=== PATIENT | male | born 1965 | race Caucasian/White ===

== ENCOUNTER 2021-07-20 18:38 | Inpatient (IN) | payer OTHER ==
[2021-07-20] MEDS ORDERED: MAGNESIUM CITRATE 300 ML BOTTLE PO PRN (22:08)
[2021-07-20] MEDS ORDERED: MENTHOL/PHENOL 1 EACH UD MM PRN (22:08)
[2021-07-20] MEDS ORDERED: MAG HYDROX/AL HYDROX/SIMETH 30 ML UNIT-DOSE CUP PO PRN (22:08)
[2021-07-20] MEDS ORDERED: ACETAMINOPHEN 325 MG TABLET (FP) PO PRN (22:08)
[2021-07-20] MEDS ORDERED: LOPERAMIDE HCL 2 MG CAPSULE PO PRN (22:08)
[2021-07-20] MEDS ORDERED: guaiFENesin 200 MG/10 ML 10 ML UNIT-DOSE CUPS PO PRN (22:08)
[2021-07-20] MEDS ORDERED: IBUPROFEN 400 MG TABLET (FP) PO PRN (22:08)
[2021-07-20] MEDS ORDERED: MAGNESIUM HYDROX 2400MG/30ML ORAL SUSPENSION 30 ML CUP PO PRN (22:08)
[2021-07-20] MEDS ORDERED: P-EPHED 60MG/TRIPROLIDI 2.5MG TABLET PO PRN (22:08)
[2021-07-20] MEDS ORDERED: hydrOXYzine PAMOATE 25 MG CAPSULE (FP) PO PRN (22:11)
[2021-07-20 22:38] VITALS: BMI 21.7
[2021-07-21] MEDS: MELATONIN 5 MG TABLETS PO SCH ×2 (01:19→21:48)
[2021-07-21] MEDS: GABAPENTIN 100 MG CAPSULE PO SCH ×4 (01:20→21:48)
[2021-07-21] MEDS ORDERED: TUBERCULIN PPD 5 TU/0.1ML VIAL ID ONE (06:33)
[2021-07-21] MEDS: PRENATAL VITAMINS W/ FOLIC ACID TABLET (FP) PO SCH (09:45)
[2021-07-21] MEDS: THIAMINE HCL 100 MG TABLET (FP) PO SCH (21:48)
[2021-07-22] MEDS: GABAPENTIN 100 MG CAPSULE PO SCH ×3 (06:07→21:32)
[2021-07-22] MEDS: PRENATAL VITAMINS W/ FOLIC ACID TABLET (FP) PO SCH (09:57)
[2021-07-22] MEDS: MELATONIN 5 MG TABLETS PO SCH (21:32)
[2021-07-22] MEDS: THIAMINE HCL 100 MG TABLET (FP) PO SCH (21:32)
[2021-07-23] MEDS: GABAPENTIN 100 MG CAPSULE PO SCH ×3 (06:25→22:05)
[2021-07-23] MEDS ORDERED: hydrOXYzine PAMOATE 25 MG CAPSULE (FP) PO PRN (11:50)
[2021-07-23] MEDS ORDERED: P-EPHED 60MG/TRIPROLIDI 2.5MG TABLET PO PRN (11:51)
[2021-07-23] MEDS ORDERED: LOPERAMIDE HCL 2 MG CAPSULE PO PRN (11:51)
[2021-07-23] MEDS ORDERED: MAGNESIUM CITRATE 300 ML BOTTLE PO PRN (11:51)
[2021-07-23] MEDS ORDERED: guaiFENesin 200 MG/10 ML 10 ML UNIT-DOSE CUPS PO PRN (11:51)
[2021-07-23] MEDS ORDERED: ACETAMINOPHEN 325 MG TABLET (FP) PO PRN (11:51)
[2021-07-23] MEDS ORDERED: MAG HYDROX/AL HYDROX/SIMETH 30 ML UNIT-DOSE CUP PO PRN (11:51)
[2021-07-23] MEDS ORDERED: NICOTINE 10 MG CARTRIDGE (INHALER) IH PRN (11:51)
[2021-07-23] MEDS ORDERED: MAGNESIUM HYDROX 2400MG/30ML ORAL SUSPENSION 30 ML CUP PO PRN (11:51)
[2021-07-23 20:37] LABS: URINE APPEARANCE CLEAR; URINE BILIRUBIN NEGATIVE (NEGATIVE); URINE COLOR YELLOW; URINE GLUCOSE (UA) NEGATIVE (NEGATIVE); URINE KETONE NEGATIVE (NEGATIVE); URINE LEUK ESTERASE NEGATIVE (NEGATIVE); URINE NITRITE NEGATIVE (NEGATIVE); URINE PROTEIN NEGATIVE (NEGATIVE); URINE UROBILINOGEN 0.2 mg/dL (0.2-1.0)
[2021-07-23] MEDS: THIAMINE HCL 100 MG TABLET (FP) PO SCH (22:05)
[2021-07-23] MEDS: MELATONIN 5 MG TABLETS PO SCH (22:05)
[2021-07-24] MEDS: GABAPENTIN 100 MG CAPSULE PO SCH ×3 (06:11→21:20)
[2021-07-24] MEDS: NICOTINE 7 MG/24 HOURS TOPICAL PATCH TD SCH (09:20)
[2021-07-24] MEDS: PRENATAL VITAMINS W/ FOLIC ACID TABLET (FP) PO SCH (09:20)
[2021-07-24 10:10] LABS: ALBUMIN 3.3 g/dl (3.4-5.0)
[2021-07-24 10:12] LABS: CALCIUM 9.3 mg/dL (8.5-10.1)
[2021-07-24 10:13] LABS: BLOOD UREA NITROGEN 12.4 mg/dL (7-18); CREATININE 1.1 mg/dL (0.55-1.3)
[2021-07-24 10:14] LABS: BILIRUBIN,TOTAL 0.2 mg/dL (0.2-1); TOT PROT 7.2 g/dl (6.4-8.2)
[2021-07-24 10:15] LABS: HEMATOCRIT 39.6 % (35.4-49); HEMOGLOBIN 12.7 GM/dL (11.7-16.9); MCH 31.7 pg (25.7-33.7); MCHC 32.1 g/dl (32.0-35.9); MEAN CELL VOLUME 98.7 fl (80-96); PLATELET COUNT 206 10^3/uL (134-434); RBC 4.01 M/mm3 (4.00-5.60); RDW 14.5 % (11.9-15.9); WHITE BLOOD COUNT 7.1 K/mm3 (4.0-10.0)
[2021-07-24] MEDS: hydrOXYzine PAMOATE 25 MG CAPSULE (FP) PO PRN (21:21)
[2021-07-24] MEDS: MELATONIN 5 MG TABLETS PO SCH (21:21)
[2021-07-24] MEDS: THIAMINE HCL 100 MG TABLET (FP) PO SCH (21:21)
[2021-07-25] MEDS: GABAPENTIN 100 MG CAPSULE PO SCH (06:56)
[2021-07-25] MEDS: NICOTINE 7 MG/24 HOURS TOPICAL PATCH TD SCH (09:28)
[2021-07-25] MEDS: PRENATAL VITAMINS W/ FOLIC ACID TABLET (FP) PO SCH (09:28)
[2021-07-25] MEDS ORDERED: GABAPENTIN 400 MG CAPSULE ONE ×2 (14:20→19:02)
[2021-07-25] MEDS ORDERED: GABAPENTIN 100 MG CAPSULE ONE ×2 (14:20→19:01)
[2021-07-25] MEDS: GABAPENTIN 400 MG, GABAPENTIN 100 MG PO SCH ×2 (14:38→21:31)
[2021-07-25] MEDS: MELATONIN 5 MG TABLETS PO SCH (21:30)
[2021-07-25] MEDS: THIAMINE HCL 100 MG TABLET (FP) PO SCH (21:30)
[2021-07-26] MEDS ORDERED: GABAPENTIN 400 MG CAPSULE ONE ×2 (03:50→13:18)
[2021-07-26] MEDS ORDERED: GABAPENTIN 100 MG CAPSULE ONE ×2 (03:50→13:18)
[2021-07-26] MEDS: GABAPENTIN 400 MG, GABAPENTIN 100 MG PO SCH ×3 (07:24→21:41)
[2021-07-26] MEDS: NICOTINE 7 MG/24 HOURS TOPICAL PATCH TD SCH (09:38)
[2021-07-26] MEDS: PRENATAL VITAMINS W/ FOLIC ACID TABLET (FP) PO SCH (09:38)
[2021-07-26 10:42] LABS: BASO % 1.3 % (0-2.0); EOS % 11.6 % (0-4.5); HEMATOCRIT 39.4 % (35.4-49); HEMOGLOBIN 13.1 GM/dL (11.7-16.9); LYMPH % 28.9 % (8-40); MCH 32.4 pg (25.7-33.7); MCHC 33.3 g/dl (32.0-35.9); MEAN CELL VOLUME 97.3 fl (80-96); MEAN PLT VOLUME 8.4 fl (7.5-11.1); MONO % 11.6 % (3.8-10.2); NEUT % 46.6 % (42.8-82.8); PLATELET COUNT 225 10^3/uL (134-434); RBC 4.05 M/mm3 (4.00-5.60); RDW 14.4 % (11.9-15.9)
[2021-07-26 11:29] LABS: CALCIUM 9.2 mg/dL (8.5-10.1)
[2021-07-26 11:30] LABS: ALBUMIN 3.4 g/dl (3.4-5.0); BLOOD UREA NITROGEN 14.1 mg/dL (7-18)
[2021-07-26 11:33] LABS: CREATININE 1.1 mg/dL (0.55-1.3)
[2021-07-26 11:34] LABS: BILIRUBIN,TOTAL 0.4 mg/dL (0.2-1); TOT PROT 7.4 g/dl (6.4-8.2)
[2021-07-26] MEDS: THIAMINE HCL 100 MG TABLET (FP) PO SCH (21:42)
[2021-07-26] MEDS: MELATONIN 5 MG TABLETS PO SCH (21:42)
[2021-07-27] MEDS ORDERED: GABAPENTIN 400 MG CAPSULE ONE ×2 (03:04→19:41)
[2021-07-27] MEDS ORDERED: GABAPENTIN 100 MG CAPSULE ONE ×2 (03:04→19:40)
[2021-07-27] MEDS: GABAPENTIN 400 MG, GABAPENTIN 100 MG PO SCH ×3 (06:06→21:27)
[2021-07-27] MEDS: NICOTINE 7 MG/24 HOURS TOPICAL PATCH TD SCH (09:36)
[2021-07-27] MEDS: PRENATAL VITAMINS W/ FOLIC ACID TABLET (FP) PO SCH (09:36)
[2021-07-27] MEDS: THIAMINE HCL 100 MG TABLET (FP) PO SCH (21:27)
[2021-07-27] MEDS: hydrOXYzine PAMOATE 25 MG CAPSULE (FP) PO PRN (21:27)
[2021-07-27] MEDS: MELATONIN 5 MG TABLETS PO SCH (21:27)
[2021-07-28] MEDS: GABAPENTIN 400 MG, GABAPENTIN 100 MG PO SCH ×3 (06:12→21:12)
[2021-07-28] MEDS: PRENATAL VITAMINS W/ FOLIC ACID TABLET (FP) PO SCH (09:48)
[2021-07-28] MEDS: NICOTINE 7 MG/24 HOURS TOPICAL PATCH TD SCH (09:48)
[2021-07-28] MEDS ORDERED: GABAPENTIN 400 MG CAPSULE ONE (14:11)
[2021-07-28] MEDS ORDERED: GABAPENTIN 100 MG CAPSULE ONE (14:11)
[2021-07-28] MEDS: MELATONIN 5 MG TABLETS PO SCH (21:11)
[2021-07-28] MEDS: THIAMINE HCL 100 MG TABLET (FP) PO SCH (21:12)
[2021-07-29] MEDS ORDERED: GABAPENTIN 100 MG CAPSULE ONE ×2 (03:42→13:49)
[2021-07-29] MEDS ORDERED: GABAPENTIN 400 MG CAPSULE ONE ×2 (03:42→13:49)
[2021-07-29] MEDS: GABAPENTIN 400 MG, GABAPENTIN 100 MG PO SCH ×3 (06:11→21:11)
[2021-07-29] MEDS: NICOTINE 7 MG/24 HOURS TOPICAL PATCH TD SCH (09:49)
[2021-07-29] MEDS: PRENATAL VITAMINS W/ FOLIC ACID TABLET (FP) PO SCH (09:49)
[2021-07-29] MEDS: THIAMINE HCL 100 MG TABLET (FP) PO SCH (21:11)
[2021-07-29] MEDS: MELATONIN 5 MG TABLETS PO SCH (21:11)
[2021-07-30] MEDS ORDERED: GABAPENTIN 100 MG CAPSULE ONE ×3 (03:24→19:30)
[2021-07-30] MEDS ORDERED: GABAPENTIN 400 MG CAPSULE ONE ×3 (03:24→19:30)
[2021-07-30] MEDS: GABAPENTIN 400 MG, GABAPENTIN 100 MG PO SCH ×3 (06:18→21:18)
[2021-07-30] MEDS: NICOTINE 7 MG/24 HOURS TOPICAL PATCH TD SCH (09:53)
[2021-07-30] MEDS: PRENATAL VITAMINS W/ FOLIC ACID TABLET (FP) PO SCH (09:53)
[2021-07-30] MEDS: THIAMINE HCL 100 MG TABLET (FP) PO SCH (21:18)
[2021-07-30] MEDS: MELATONIN 5 MG TABLETS PO SCH (21:18)
[2021-07-31] MEDS ORDERED: GABAPENTIN 400 MG CAPSULE ONE ×2 (02:59→14:33)
[2021-07-31] MEDS ORDERED: GABAPENTIN 100 MG CAPSULE ONE ×2 (02:59→14:33)
[2021-07-31] MEDS: GABAPENTIN 400 MG, GABAPENTIN 100 MG PO SCH ×3 (06:05→21:26)
[2021-07-31] MEDS: PRENATAL VITAMINS W/ FOLIC ACID TABLET (FP) PO SCH (09:50)
[2021-07-31] MEDS: NICOTINE 7 MG/24 HOURS TOPICAL PATCH TD SCH (09:51)
[2021-07-31] MEDS: MELATONIN 5 MG TABLETS PO SCH (21:26)
[2021-07-31] MEDS: THIAMINE HCL 100 MG TABLET (FP) PO SCH (21:26)
[2021-08-01] MEDS ORDERED: GABAPENTIN 400 MG CAPSULE ONE ×3 (03:13→19:16)
[2021-08-01] MEDS ORDERED: GABAPENTIN 100 MG CAPSULE ONE ×3 (03:13→19:16)
[2021-08-01] MEDS: GABAPENTIN 400 MG, GABAPENTIN 100 MG PO SCH ×3 (06:17→21:17)
[2021-08-01] MEDS: PRENATAL VITAMINS W/ FOLIC ACID TABLET (FP) PO SCH (09:52)
[2021-08-01] MEDS: NICOTINE 7 MG/24 HOURS TOPICAL PATCH TD SCH (09:52)
[2021-08-01] MEDS: THIAMINE HCL 100 MG TABLET (FP) PO SCH (21:17)
[2021-08-01] MEDS: MELATONIN 5 MG TABLETS PO SCH (21:17)
[2021-08-01] MEDS: hydrOXYzine PAMOATE 25 MG CAPSULE (FP) PO PRN (21:17)
[2021-08-02] MEDS ORDERED: GABAPENTIN 100 MG CAPSULE ONE ×3 (05:03→19:45)
[2021-08-02] MEDS ORDERED: GABAPENTIN 400 MG CAPSULE ONE ×3 (05:03→19:45)
[2021-08-02] MEDS: GABAPENTIN 400 MG, GABAPENTIN 100 MG PO SCH ×3 (06:12→21:19)
[2021-08-02] MEDS: NICOTINE 7 MG/24 HOURS TOPICAL PATCH TD SCH (09:53)
[2021-08-02] MEDS: PRENATAL VITAMINS W/ FOLIC ACID TABLET (FP) PO SCH (09:53)
[2021-08-02] MEDS: IBUPROFEN 400 MG TABLET (FP) PO PRN (19:00)
[2021-08-02] MEDS: THIAMINE HCL 100 MG TABLET (FP) PO SCH (21:19)
[2021-08-02] MEDS: MELATONIN 5 MG TABLETS PO SCH (21:19)
[2021-08-03] MEDS ORDERED: GABAPENTIN 100 MG CAPSULE ONE ×3 (03:04→20:10)
[2021-08-03] MEDS ORDERED: GABAPENTIN 400 MG CAPSULE ONE ×3 (03:04→20:10)
[2021-08-03] MEDS: GABAPENTIN 400 MG, GABAPENTIN 100 MG PO SCH ×3 (06:31→21:07)
[2021-08-03] MEDS: PRENATAL VITAMINS W/ FOLIC ACID TABLET (FP) PO SCH (09:47)
[2021-08-03] MEDS: NICOTINE 7 MG/24 HOURS TOPICAL PATCH TD SCH (09:47)
[2021-08-03] MEDS: METHOCARBAMOL 500 MG TABLET PO PRN ×2 (11:50→21:07)
[2021-08-03] MEDS: NALTREXONE HCL 50 MG TABLET PO SCH (12:01)
[2021-08-03] MEDS: IBUPROFEN 400 MG TABLET (FP) PO PRN (18:07)
[2021-08-03] MEDS: THIAMINE HCL 100 MG TABLET (FP) PO SCH (21:07)
[2021-08-03] MEDS: MELATONIN 5 MG TABLETS PO SCH (21:07)
[2021-08-04] MEDS ORDERED: GABAPENTIN 100 MG CAPSULE ONE ×3 (03:00→19:42)
[2021-08-04] MEDS ORDERED: GABAPENTIN 400 MG CAPSULE ONE ×3 (03:01→19:43)
[2021-08-04] MEDS: GABAPENTIN 400 MG, GABAPENTIN 100 MG PO SCH ×3 (06:11→21:25)
[2021-08-04] MEDS: METHOCARBAMOL 500 MG TABLET PO PRN ×2 (06:11→21:24)
[2021-08-04] MEDS: NALTREXONE HCL 50 MG TABLET PO SCH (10:10)
[2021-08-04] MEDS: NICOTINE 7 MG/24 HOURS TOPICAL PATCH TD SCH (10:10)
[2021-08-04] MEDS: PRENATAL VITAMINS W/ FOLIC ACID TABLET (FP) PO SCH (10:10)
[2021-08-04] MEDS: THIAMINE HCL 100 MG TABLET (FP) PO SCH (21:24)
[2021-08-04] MEDS: hydrOXYzine PAMOATE 25 MG CAPSULE (FP) PO PRN (21:24)
[2021-08-04] MEDS: MELATONIN 5 MG TABLETS PO SCH (21:26)
[2021-08-05] MEDS ORDERED: GABAPENTIN 400 MG CAPSULE ONE (03:21)
[2021-08-05] MEDS ORDERED: GABAPENTIN 100 MG CAPSULE ONE (03:21)
[2021-08-05] MEDS: METHOCARBAMOL 500 MG TABLET PO PRN (06:10)
[2021-08-05] MEDS: GABAPENTIN 400 MG, GABAPENTIN 100 MG PO SCH (06:10)
[2021-08-05 07:07] VITALS: BP 113/68; PULSE 93; TEMP 97.8
[2021-08-05] MEDS: NICOTINE 7 MG/24 HOURS TOPICAL PATCH TD SCH (09:23)
[2021-08-05] MEDS: PRENATAL VITAMINS W/ FOLIC ACID TABLET (FP) PO SCH (09:23)
[2021-08-05] MEDS: NALTREXONE HCL 50 MG TABLET PO SCH (09:24)
== END 2021-08-05 09:30 | disposition home or self-care (01) | DRG 772 ==
LOC: YASAS 18:38 → Y5N 23:55
PROVIDERS: ADMIT Allergy & Immunology; ATTEND Allergy & Immunology
PROC: HZ42ZZZ Group Counseling for Substance Abuse Treatment, Cognitive-Behavioral (ICD-10-PCS; principal; 2021-07-20)
DX: F10.20 Alcohol dependence, uncomplicated (principal); F11.20 Opioid dependence, uncomplicated; F17.210 Nicotine dependence, cigarettes, uncomplicated; F14.90 Cocaine use, unspecified, uncomplicated; F19.24 Other psychoactive substance dependence with psychoactive substance-induced mood disorder; I10 Essential (primary) hypertension; Z62.810 Personal history of physical and sexual abuse in childhood; Z51.81 Encounter for therapeutic drug level monitoring; Z79.899 Other long term (current) drug therapy; Z86.69 Personal history of other diseases of the nervous system and sense organs; Z59.02 Unsheltered homelessness
CPT/HCPCS: 36415; 80053; 81003; 85025; 85027; 86780; C9803; U0003; U0005

== ENCOUNTER 2021-09-15 16:34 | Inpatient (IN) | payer OTHER ==
[2021-09-15 17:08] VITALS: BMI 21.4
[2021-09-15] MEDS ORDERED: ACETAMINOPHEN 325 MG TABLET (FP) PO PRN ×2 (18:37)
[2021-09-15] MEDS ORDERED: MAGNESIUM CITRATE 300 ML BOTTLE PO PRN (18:37)
[2021-09-15] MEDS ORDERED: MAGNESIUM HYDROX 2400MG/30ML ORAL SUSPENSION 30 ML CUP PO PRN (18:37)
[2021-09-15] MEDS ORDERED: LOPERAMIDE HCL 2 MG CAPSULE PO PRN (18:37)
[2021-09-15] MEDS ORDERED: MENTHOL/PHENOL 1 EACH UD MM PRN (18:37)
[2021-09-15] MEDS ORDERED: ONDANSETRON *ODT* 4 MG TABLET SL PRN (18:37)
[2021-09-15] MEDS ORDERED: BISMUTH SUBSALICYLATE 524 MG/30 ML PO PRN (18:37)
[2021-09-15] MEDS ORDERED: IBUPROFEN 400 MG TABLET (FP) PO PRN (18:37)
[2021-09-15] MEDS ORDERED: MAG HYDROX/AL HYDROX/SIMETH 30 ML UNIT-DOSE CUP PO PRN (18:37)
[2021-09-15] MEDS ORDERED: chlordiazePOXIDE HCL 25 MG CAPSULE PO PRN (18:38)
[2021-09-15] MEDS ORDERED: METOPROLOL TARTRATE 25 MG TABLET (FP) PO ONE (18:39)
[2021-09-15] MEDS ORDERED: METOPROLOL TARTRATE 50 MG TABLET (FP) PO ONE (23:00)
[2021-09-15] MEDS: MELATONIN 5 MG TABLETS PO PRN (23:01)
[2021-09-15] MEDS: chlordiazePOXIDE HCL 25 MG CAPSULE PO SCH (23:03)
[2021-09-15] MEDS: THIAMINE HCL 100 MG TABLET (FP) PO SCH (23:05)
[2021-09-16] MEDS: chlordiazePOXIDE HCL 25 MG CAPSULE PO SCH ×4 (05:58→22:24)
[2021-09-16] MEDS: PRENATAL VITAMINS W/ FOLIC ACID TABLET (FP) PO SCH (10:53)
[2021-09-16 12:57] LABS: HEMATOCRIT 45.2 % (35.4-49); HEMOGLOBIN 15.5 GM/dL (11.7-16.9); MCHC 34.3 g/dl (32.0-35.9); MEAN CELL VOLUME 96.1 fl (80-96); PLATELET COUNT 243 10^3/uL (134-434); RDW 15.2 % (11.9-15.9); WHITE BLOOD COUNT 6.6 K/mm3 (4.0-10.0)
[2021-09-16 13:11] LABS: CALCIUM 9.8 mg/dL (8.5-10.1)
[2021-09-16 13:12] LABS: ALBUMIN 4.2 g/dl (3.4-5.0); BLOOD UREA NITROGEN 12.4 mg/dL (7-18)
[2021-09-16 13:15] LABS: BILIRUBIN,TOTAL 0.7 mg/dL (0.2-1); CREATININE 1.3 mg/dL (0.55-1.3); TOT PROT 8.8 g/dl (6.4-8.2)
[2021-09-16] MEDS: MELATONIN 5 MG TABLETS PO PRN (22:24)
[2021-09-16] MEDS: THIAMINE HCL 100 MG TABLET (FP) PO SCH (22:24)
[2021-09-17] MEDS: METHOCARBAMOL 500 MG TABLET PO PRN ×3 (05:54→22:34)
[2021-09-17] MEDS: chlordiazePOXIDE HCL 25 MG CAPSULE PO SCH ×4 (05:54→22:34)
[2021-09-17] MEDS: hydrOXYzine PAMOATE 25 MG CAPSULE (FP) PO PRN ×2 (10:24→22:34)
[2021-09-17] MEDS: PRENATAL VITAMINS W/ FOLIC ACID TABLET (FP) PO SCH (10:24)
[2021-09-17] MEDS: THIAMINE HCL 100 MG TABLET (FP) PO SCH (22:34)
[2021-09-17] MEDS: MELATONIN 5 MG TABLETS PO PRN (22:35)
[2021-09-18] MEDS ORDERED: chlordiazePOXIDE HCL 10 MG CAPSULE PO PRN
[2021-09-18] MEDS: chlordiazePOXIDE HCL 10 MG CAPSULE PO SCH ×4 (06:02→22:40)
[2021-09-18] MEDS: PRENATAL VITAMINS W/ FOLIC ACID TABLET (FP) PO SCH (10:37)
[2021-09-18] MEDS ORDERED: COLLOIDAL OATMEAL 1 BAR EACH TP PRN (16:28)
[2021-09-18] MEDS: THIAMINE HCL 100 MG TABLET (FP) PO SCH (22:40)
[2021-09-18] MEDS: MINERAL OIL/PETROLAT/WATER TOPICAL CREAM 113 GM JAR TP SCH (22:48)
[2021-09-19] MEDS: chlordiazePOXIDE HCL 10 MG CAPSULE PO SCH ×2 (05:50→17:56)
[2021-09-19] MEDS: PRENATAL VITAMINS W/ FOLIC ACID TABLET (FP) PO SCH (10:31)
[2021-09-19] MEDS: MINERAL OIL/PETROLAT/WATER TOPICAL CREAM 113 GM JAR TP SCH (15:21)
[2021-09-19] MEDS: THIAMINE HCL 100 MG TABLET (FP) PO SCH (22:17)
[2021-09-19] MEDS: hydrOXYzine PAMOATE 25 MG CAPSULE (FP) PO PRN (22:17)
[2021-09-19] MEDS: MELATONIN 5 MG TABLETS PO PRN (22:17)
[2021-09-20] MEDS: MINERAL OIL/PETROLAT/WATER TOPICAL CREAM 113 GM JAR TP SCH ×2 (00:18→10:20)
[2021-09-20] MEDS ORDERED: chlordiazePOXIDE HCL 10 MG CAPSULE PO ONE (05:00)
[2021-09-20] MEDS: PRENATAL VITAMINS W/ FOLIC ACID TABLET (FP) PO SCH (10:20)
[2021-09-20] MEDS: hydrOXYzine PAMOATE 25 MG CAPSULE (FP) PO PRN (10:20)
[2021-09-20 12:57] VITALS: BP 112/69; PULSE 91; TEMP 98.2
[2021-09-20 13:07] LABS: SARS-CoV-2 NAA Not Detected (Not Detected)
== END 2021-09-20 14:17 | disposition other institution (70) | DRG 775 ==
LOC: YASAS 16:34 → Y6N 20:56
PROVIDERS: ADMIT Allergy & Immunology; ATTEND Allergy & Immunology
PROC: HZ2ZZZZ Detoxification Services for Substance Abuse Treatment (ICD-10-PCS; principal; 2021-09-15)
DX: F10.230 Alcohol dependence with withdrawal, uncomplicated (principal); F10.220 Alcohol dependence with intoxication, uncomplicated; F17.210 Nicotine dependence, cigarettes, uncomplicated; I10 Essential (primary) hypertension; R00.0 Tachycardia, unspecified; Z59.00 Homelessness unspecified
CPT/HCPCS: 36415; 80053; 85027; 86780; C9803; U0003; U0005

== ENCOUNTER 2021-09-20 14:06 | Inpatient (IN) | payer OTHER ==
[2021-09-20] MEDS ORDERED: IBUPROFEN 400 MG TABLET (FP) PO PRN (14:11)
[2021-09-20] MEDS ORDERED: P-EPHED 60MG/TRIPROLIDI 2.5MG TABLET PO PRN (14:11)
[2021-09-20] MEDS ORDERED: MAG HYDROX/AL HYDROX/SIMETH 30 ML UNIT-DOSE CUP PO PRN (14:11)
[2021-09-20] MEDS ORDERED: LOPERAMIDE HCL 2 MG CAPSULE PO PRN (14:11)
[2021-09-20] MEDS ORDERED: ACETAMINOPHEN 325 MG TABLET (FP) PO PRN (14:11)
[2021-09-20] MEDS ORDERED: MAGNESIUM HYDROX 2400MG/30ML ORAL SUSPENSION 30 ML CUP PO PRN (14:11)
[2021-09-20] MEDS ORDERED: MAGNESIUM CITRATE 300 ML BOTTLE PO PRN (14:11)
[2021-09-20] MEDS ORDERED: guaiFENesin 200 MG/10 ML 10 ML UNIT-DOSE CUPS PO PRN (14:11)
[2021-09-20] MEDS: hydrOXYzine PAMOATE 25 MG CAPSULE (FP) PO SCH ×2 (17:51→21:24)
[2021-09-20] MEDS: THIAMINE HCL 100 MG TABLET (FP) PO SCH (21:23)
[2021-09-20] MEDS: MELATONIN 5 MG TABLETS PO SCH (21:23)
[2021-09-21] MEDS: hydrOXYzine PAMOATE 25 MG CAPSULE (FP) PO SCH ×5 (06:13→21:49)
[2021-09-21] MEDS: PRENATAL VITAMINS W/ FOLIC ACID TABLET (FP) PO SCH (09:42)
[2021-09-21] MEDS: NICOTINE 7 MG/24 HOURS TOPICAL PATCH TD SCH (09:43)
[2021-09-21] MEDS: MELATONIN 5 MG TABLETS PO SCH (21:49)
[2021-09-21] MEDS: THIAMINE HCL 100 MG TABLET (FP) PO SCH (21:49)
[2021-09-22] MEDS: hydrOXYzine PAMOATE 25 MG CAPSULE (FP) PO SCH ×2 (06:17→10:00)
[2021-09-22] MEDS: NICOTINE 7 MG/24 HOURS TOPICAL PATCH TD SCH (10:00)
[2021-09-22] MEDS: PRENATAL VITAMINS W/ FOLIC ACID TABLET (FP) PO SCH (10:00)
[2021-09-22] MEDS: THIAMINE HCL 100 MG TABLET (FP) PO SCH (21:09)
[2021-09-22] MEDS: MELATONIN 5 MG TABLETS PO SCH (21:09)
[2021-09-23] MEDS: PRENATAL VITAMINS W/ FOLIC ACID TABLET (FP) PO SCH (10:30)
[2021-09-23] MEDS: NICOTINE 7 MG/24 HOURS TOPICAL PATCH TD SCH (10:30)
[2021-09-23] MEDS: MELATONIN 5 MG TABLETS PO SCH (21:04)
[2021-09-23] MEDS: THIAMINE HCL 100 MG TABLET (FP) PO SCH (21:04)
[2021-09-24] MEDS: PRENATAL VITAMINS W/ FOLIC ACID TABLET (FP) PO SCH (09:44)
[2021-09-24] MEDS: NICOTINE 7 MG/24 HOURS TOPICAL PATCH TD SCH (09:44)
[2021-09-24 13:07] LABS: SARS-CoV-2 NAA Not Detected (Not Detected)
[2021-09-24] MEDS: MELATONIN 5 MG TABLETS PO SCH (21:59)
[2021-09-24] MEDS: hydrOXYzine PAMOATE 25 MG CAPSULE (FP) PO PRN (21:59)
[2021-09-24] MEDS: THIAMINE HCL 100 MG TABLET (FP) PO SCH (21:59)
[2021-09-25] MEDS: NICOTINE 7 MG/24 HOURS TOPICAL PATCH TD SCH (10:15)
[2021-09-25] MEDS: PRENATAL VITAMINS W/ FOLIC ACID TABLET (FP) PO SCH (10:15)
[2021-09-25] MEDS: MELATONIN 5 MG TABLETS PO SCH (21:00)
[2021-09-25] MEDS: THIAMINE HCL 100 MG TABLET (FP) PO SCH (21:00)
[2021-09-26] MEDS: PRENATAL VITAMINS W/ FOLIC ACID TABLET (FP) PO SCH (09:35)
[2021-09-26] MEDS: NICOTINE 7 MG/24 HOURS TOPICAL PATCH TD SCH (09:36)
[2021-09-26] MEDS: THIAMINE HCL 100 MG TABLET (FP) PO SCH (21:04)
[2021-09-26] MEDS: MELATONIN 5 MG TABLETS PO SCH (21:04)
[2021-09-27] MEDS: PRENATAL VITAMINS W/ FOLIC ACID TABLET (FP) PO SCH (09:42)
[2021-09-27] MEDS: NICOTINE 7 MG/24 HOURS TOPICAL PATCH TD SCH (09:42)
[2021-09-27] MEDS: THIAMINE HCL 100 MG TABLET (FP) PO SCH (21:46)
[2021-09-27] MEDS: MELATONIN 5 MG TABLETS PO SCH (21:46)
[2021-09-28] MEDS: PRENATAL VITAMINS W/ FOLIC ACID TABLET (FP) PO SCH (09:40)
[2021-09-28] MEDS: NICOTINE 7 MG/24 HOURS TOPICAL PATCH TD SCH (09:41)
[2021-09-28] MEDS: MELATONIN 5 MG TABLETS PO SCH (21:04)
[2021-09-28] MEDS: THIAMINE HCL 100 MG TABLET (FP) PO SCH (21:04)
[2021-09-29] MEDS: NICOTINE 7 MG/24 HOURS TOPICAL PATCH TD SCH (10:18)
[2021-09-29] MEDS: PRENATAL VITAMINS W/ FOLIC ACID TABLET (FP) PO SCH (10:18)
[2021-09-29] MEDS: THIAMINE HCL 100 MG TABLET (FP) PO SCH (21:29)
[2021-09-29] MEDS: hydrOXYzine PAMOATE 25 MG CAPSULE (FP) PO PRN (21:30)
[2021-09-29] MEDS: MELATONIN 5 MG TABLETS PO SCH (21:30)
[2021-09-30] MEDS: PRENATAL VITAMINS W/ FOLIC ACID TABLET (FP) PO SCH (09:37)
[2021-09-30] MEDS: NICOTINE 7 MG/24 HOURS TOPICAL PATCH TD SCH (09:37)
[2021-09-30] MEDS: THIAMINE HCL 100 MG TABLET (FP) PO SCH (21:13)
[2021-09-30] MEDS: hydrOXYzine PAMOATE 25 MG CAPSULE (FP) PO PRN (21:13)
[2021-09-30] MEDS: MELATONIN 5 MG TABLETS PO SCH (21:13)
[2021-10-01] MEDS: PRENATAL VITAMINS W/ FOLIC ACID TABLET (FP) PO SCH (09:13)
[2021-10-01] MEDS: NICOTINE 7 MG/24 HOURS TOPICAL PATCH TD SCH (09:13)
[2021-10-01] MEDS: MELATONIN 5 MG TABLETS PO SCH (21:10)
[2021-10-01] MEDS: THIAMINE HCL 100 MG TABLET (FP) PO SCH (21:10)
[2021-10-02] MEDS: PRENATAL VITAMINS W/ FOLIC ACID TABLET (FP) PO SCH (09:31)
[2021-10-02] MEDS: NICOTINE 7 MG/24 HOURS TOPICAL PATCH TD SCH (09:31)
[2021-10-02] MEDS: MELATONIN 5 MG TABLETS PO SCH (21:48)
[2021-10-02] MEDS: THIAMINE HCL 100 MG TABLET (FP) PO SCH (21:48)
[2021-10-03] MEDS: PRENATAL VITAMINS W/ FOLIC ACID TABLET (FP) PO SCH (09:50)
[2021-10-03] MEDS: NICOTINE 7 MG/24 HOURS TOPICAL PATCH TD SCH (09:51)
[2021-10-03] MEDS: GABAPENTIN 100 MG CAPSULE PO SCH ×2 (13:37→21:06)
[2021-10-03] MEDS: MELATONIN 5 MG TABLETS PO SCH (21:06)
[2021-10-03] MEDS: THIAMINE HCL 100 MG TABLET (FP) PO SCH (21:06)
[2021-10-04] MEDS: GABAPENTIN 100 MG CAPSULE PO SCH ×3 (06:23→21:06)
[2021-10-04] MEDS: PRENATAL VITAMINS W/ FOLIC ACID TABLET (FP) PO SCH (10:23)
[2021-10-04] MEDS: NICOTINE 7 MG/24 HOURS TOPICAL PATCH TD SCH (10:23)
[2021-10-04] MEDS ORDERED: COLLOIDAL OATMEAL 1 BAR EACH TP PRN (15:47)
[2021-10-04] MEDS: THIAMINE HCL 100 MG TABLET (FP) PO SCH (21:06)
[2021-10-04] MEDS: MELATONIN 5 MG TABLETS PO SCH (21:47)
[2021-10-05] MEDS: GABAPENTIN 100 MG CAPSULE PO SCH ×3 (06:21→21:36)
[2021-10-05] MEDS: NICOTINE 7 MG/24 HOURS TOPICAL PATCH TD SCH (09:44)
[2021-10-05] MEDS: PRENATAL VITAMINS W/ FOLIC ACID TABLET (FP) PO SCH (09:44)
[2021-10-05] MEDS: THIAMINE HCL 100 MG TABLET (FP) PO SCH (21:36)
[2021-10-05] MEDS: MELATONIN 5 MG TABLETS PO SCH (21:36)
[2021-10-06] MEDS: GABAPENTIN 100 MG CAPSULE PO SCH ×3 (06:17→21:05)
[2021-10-06] MEDS: NICOTINE 10 MG CARTRIDGE (INHALER) IH PRN ×2 (06:18→12:53)
[2021-10-06] MEDS: PRENATAL VITAMINS W/ FOLIC ACID TABLET (FP) PO SCH (09:27)
[2021-10-06] MEDS: NICOTINE 7 MG/24 HOURS TOPICAL PATCH TD SCH (09:27)
[2021-10-06] MEDS ORDERED: HYDROCORTISONE 1% TOPICAL OINT 30 GM TUBE TP PRN (16:19)
[2021-10-06] MEDS: THIAMINE HCL 100 MG TABLET (FP) PO SCH (21:05)
[2021-10-06] MEDS: MELATONIN 5 MG TABLETS PO SCH (21:05)
[2021-10-07] MEDS: GABAPENTIN 100 MG CAPSULE PO SCH ×3 (06:24→21:13)
[2021-10-07] MEDS: NICOTINE 10 MG CARTRIDGE (INHALER) IH PRN (06:24)
[2021-10-07] MEDS: NICOTINE 7 MG/24 HOURS TOPICAL PATCH TD SCH (09:35)
[2021-10-07] MEDS: PRENATAL VITAMINS W/ FOLIC ACID TABLET (FP) PO SCH (09:35)
[2021-10-07] MEDS: MELATONIN 5 MG TABLETS PO SCH (21:13)
[2021-10-07] MEDS: THIAMINE HCL 100 MG TABLET (FP) PO SCH (21:13)
[2021-10-08] MEDS: NICOTINE 10 MG CARTRIDGE (INHALER) IH PRN ×3 (06:46→21:37)
[2021-10-08] MEDS: GABAPENTIN 100 MG CAPSULE PO SCH ×3 (06:47→21:37)
[2021-10-08] MEDS: PRENATAL VITAMINS W/ FOLIC ACID TABLET (FP) PO SCH (10:08)
[2021-10-08] MEDS: NICOTINE 7 MG/24 HOURS TOPICAL PATCH TD SCH (10:08)
[2021-10-08] MEDS: MELATONIN 5 MG TABLETS PO SCH (21:37)
[2021-10-08] MEDS: THIAMINE HCL 100 MG TABLET (FP) PO SCH (21:37)
[2021-10-09] MEDS: NICOTINE 10 MG CARTRIDGE (INHALER) IH PRN ×3 (07:03→21:34)
[2021-10-09] MEDS: GABAPENTIN 100 MG CAPSULE PO SCH ×3 (07:03→21:33)
[2021-10-09] MEDS: PRENATAL VITAMINS W/ FOLIC ACID TABLET (FP) PO SCH (09:33)
[2021-10-09] MEDS: NICOTINE 7 MG/24 HOURS TOPICAL PATCH TD SCH (09:34)
[2021-10-09] MEDS: THIAMINE HCL 100 MG TABLET (FP) PO SCH (21:33)
[2021-10-09] MEDS: MELATONIN 5 MG TABLETS PO SCH (21:33)
[2021-10-10] MEDS: GABAPENTIN 100 MG CAPSULE PO SCH ×3 (06:27→21:09)
[2021-10-10] MEDS: NICOTINE 7 MG/24 HOURS TOPICAL PATCH TD SCH (09:53)
[2021-10-10] MEDS: NICOTINE 10 MG CARTRIDGE (INHALER) IH PRN (09:53)
[2021-10-10] MEDS: PRENATAL VITAMINS W/ FOLIC ACID TABLET (FP) PO SCH (09:53)
[2021-10-10] MEDS: THIAMINE HCL 100 MG TABLET (FP) PO SCH (21:09)
[2021-10-10] MEDS: MELATONIN 5 MG TABLETS PO SCH (21:09)
[2021-10-11 06:29] VITALS: BP 111/76; PULSE 89; TEMP 97.8
[2021-10-11] MEDS: GABAPENTIN 100 MG CAPSULE PO SCH (06:45)
[2021-10-11] MEDS: NICOTINE 10 MG CARTRIDGE (INHALER) IH PRN (07:39)
[2021-10-11] MEDS: NICOTINE 7 MG/24 HOURS TOPICAL PATCH TD SCH (09:25)
[2021-10-11] MEDS: PRENATAL VITAMINS W/ FOLIC ACID TABLET (FP) PO SCH (09:25)
== END 2021-10-11 09:37 | disposition other institution (70) | DRG 772 ==
LOC: YASAS 14:06 → Y3E 14:07
PROVIDERS: ADMIT Allergy & Immunology; ATTEND Allergy & Immunology
PROC: HZ42ZZZ Group Counseling for Substance Abuse Treatment, Cognitive-Behavioral (ICD-10-PCS; principal; 2021-09-20)
DX: F10.20 Alcohol dependence, uncomplicated (principal); F14.20 Cocaine dependence, uncomplicated; F17.210 Nicotine dependence, cigarettes, uncomplicated; I10 Essential (primary) hypertension; M54.41 Lumbago with sciatica, right side; R21 Rash and other nonspecific skin eruption; Z56.0 Unemployment, unspecified; Z59.00 Homelessness unspecified
CPT/HCPCS: C9803-CS; U0003; U0005

== ENCOUNTER 2021-12-16 12:29 | Inpatient (IN) | payer OTHER ==
[2021-12-16 12:57] VITALS: BMI 21.2
[2021-12-16] MEDS ORDERED: DICYCLOMINE HCL 10 MG CAPSULE PO PRN (14:52)
[2021-12-16] MEDS ORDERED: NICOTINE 10 MG CARTRIDGE (INHALER) IH PRN (14:52)
[2021-12-16] MEDS ORDERED: MAG HYDROX/AL HYDROX/SIMETH 30 ML UNIT-DOSE CUP PO PRN (14:52)
[2021-12-16] MEDS ORDERED: ACETAMINOPHEN 325 MG TABLET (FP) PO PRN ×2 (14:52)
[2021-12-16] MEDS ORDERED: MAGNESIUM HYDROX 2400MG/30ML ORAL SUSPENSION 30 ML CUP PO PRN (14:52)
[2021-12-16] MEDS ORDERED: BISMUTH SUBSALICYLATE 262 MG/15 ML BTL PO PRN (14:52)
[2021-12-16] MEDS ORDERED: MAGNESIUM CITRATE 300 ML BOTTLE PO PRN (14:52)
[2021-12-16] MEDS ORDERED: ONDANSETRON *ODT* 4 MG TABLET SL PRN (14:52)
[2021-12-16] MEDS ORDERED: IBUPROFEN 600 MG TABLET (FP) PO PRN (14:52)
[2021-12-16] MEDS ORDERED: BENZOCAINE/MENTHOL (CHLORASEPTIC ) LOZENGE MM PRN (14:52)
[2021-12-16] MEDS ORDERED: LOPERAMIDE HCL 2 MG CAPSULE PO PRN (14:52)
[2021-12-16] MEDS ORDERED: chlordiazePOXIDE HCL 25 MG CAPSULE PO PRN (16:19)
[2021-12-16] MEDS: chlordiazePOXIDE HCL 25 MG CAPSULE PO SCH ×2 (17:41→22:21)
[2021-12-16] MEDS: hydrOXYzine PAMOATE 25 MG CAPSULE (FP) PO SCH ×2 (17:41→22:20)
[2021-12-16] MEDS: PRENATAL VITAMINS W/ FOLIC ACID TABLET (FP) PO SCH (17:42)
[2021-12-16] MEDS: MELATONIN 5 MG TABLETS PO SCH (22:20)
[2021-12-16] MEDS: THIAMINE HCL 100 MG TABLET (FP) PO SCH (22:20)
[2021-12-17] MEDS: hydrOXYzine PAMOATE 25 MG CAPSULE (FP) PO SCH ×5 (07:15→22:24)
[2021-12-17] MEDS: chlordiazePOXIDE HCL 25 MG CAPSULE PO SCH ×4 (07:15→22:25)
[2021-12-17 10:34] LABS: HEMATOCRIT 38.9 % (35.4-49); HEMOGLOBIN 12.8 GM/dL (11.7-16.9); MCH 32.1 pg (25.7-33.7); MCHC 32.9 g/dl (32.0-35.9); MEAN CELL VOLUME 97.3 fl (80-96); MEAN PLT VOLUME 8.2 fl (7.5-11.1); PLATELET COUNT 189 10^3/uL (134-434); WHITE BLOOD COUNT 5.1 K/mm3 (4.0-10.0)
[2021-12-17] MEDS: PRENATAL VITAMINS W/ FOLIC ACID TABLET (FP) PO SCH (10:35)
[2021-12-17] MEDS: METHOCARBAMOL 500 MG TABLET PO PRN (10:38)
[2021-12-17 10:53] LABS: ALBUMIN 3.4 g/dl (3.4-5.0); BLOOD UREA NITROGEN 18.6 mg/dL (7-18); CALCIUM 9.6 mg/dL (8.5-10.1)
[2021-12-17 10:56] LABS: CREATININE 1.2 mg/dL (0.55-1.3)
[2021-12-17 10:58] LABS: BILIRUBIN,TOTAL 0.4 mg/dL (0.2-1); TOT PROT 6.9 g/dl (6.4-8.2)
[2021-12-17] MEDS: THIAMINE HCL 100 MG TABLET (FP) PO SCH (22:24)
[2021-12-17] MEDS: MELATONIN 5 MG TABLETS PO SCH (22:24)
[2021-12-18] MEDS: chlordiazePOXIDE HCL 25 MG CAPSULE PO SCH ×4 (06:15→22:50)
[2021-12-18] MEDS: hydrOXYzine PAMOATE 25 MG CAPSULE (FP) PO SCH ×5 (06:16→22:51)
[2021-12-18] MEDS: PRENATAL VITAMINS W/ FOLIC ACID TABLET (FP) PO SCH (10:50)
[2021-12-18] MEDS: IBUPROFEN 400 MG TABLET (FP) PO PRN (17:43)
[2021-12-18] MEDS: METHOCARBAMOL 500 MG TABLET PO PRN (22:50)
[2021-12-18] MEDS: MELATONIN 5 MG TABLETS PO SCH (22:50)
[2021-12-18] MEDS: THIAMINE HCL 100 MG TABLET (FP) PO SCH (22:50)
[2021-12-19] MEDS ORDERED: chlordiazePOXIDE HCL 10 MG CAPSULE PO PRN
[2021-12-19] MEDS: chlordiazePOXIDE HCL 10 MG CAPSULE PO SCH ×4 (06:11→22:29)
[2021-12-19] MEDS: hydrOXYzine PAMOATE 25 MG CAPSULE (FP) PO SCH ×5 (06:12→22:29)
[2021-12-19] MEDS: PRENATAL VITAMINS W/ FOLIC ACID TABLET (FP) PO SCH (10:13)
[2021-12-19] MEDS: THIAMINE HCL 100 MG TABLET (FP) PO SCH (22:29)
[2021-12-19] MEDS: MELATONIN 5 MG TABLETS PO SCH (22:30)
[2021-12-19] MEDS: METHOCARBAMOL 500 MG TABLET PO PRN (22:30)
[2021-12-20] MEDS: chlordiazePOXIDE HCL 10 MG CAPSULE PO SCH ×2 (06:41→17:55)
[2021-12-20] MEDS: hydrOXYzine PAMOATE 25 MG CAPSULE (FP) PO SCH ×5 (06:41→22:28)
[2021-12-20] MEDS: PRENATAL VITAMINS W/ FOLIC ACID TABLET (FP) PO SCH (10:14)
[2021-12-20] MEDS: MELATONIN 5 MG TABLETS PO SCH (22:28)
[2021-12-20] MEDS: THIAMINE HCL 100 MG TABLET (FP) PO SCH (22:28)
[2021-12-20] MEDS: METHOCARBAMOL 500 MG TABLET PO PRN (22:29)
[2021-12-20] MEDS: IBUPROFEN 400 MG TABLET (FP) PO PRN (22:29)
[2021-12-21] MEDS ORDERED: chlordiazePOXIDE HCL 10 MG CAPSULE PO ONE (05:00)
[2021-12-21] MEDS: hydrOXYzine PAMOATE 25 MG CAPSULE (FP) PO SCH ×2 (06:12→10:13)
[2021-12-21 09:11] VITALS: BP 142/82; PULSE 79; TEMP 96.7
[2021-12-21] MEDS: PRENATAL VITAMINS W/ FOLIC ACID TABLET (FP) PO SCH (10:13)
== END 2021-12-21 12:16 | disposition other institution (70) | DRG 773 ==
LOC: YASAS 12:29 → Y3N 15:50
PROVIDERS: ADMIT Allergy & Immunology; ATTEND Surgery
PROC: HZ2ZZZZ Detoxification Services for Substance Abuse Treatment (ICD-10-PCS; principal; 2021-12-16)
DX: F10.230 Alcohol dependence with withdrawal, uncomplicated (principal); F10.220 Alcohol dependence with intoxication, uncomplicated; F11.20 Opioid dependence, uncomplicated; F14.20 Cocaine dependence, uncomplicated; F17.210 Nicotine dependence, cigarettes, uncomplicated; F19.24 Other psychoactive substance dependence with psychoactive substance-induced mood disorder; I10 Essential (primary) hypertension; R79.89 Other specified abnormal findings of blood chemistry; R74.01 Elevation of levels of liver transaminase levels; M10.9 Gout, unspecified; M54.30 Sciatica, unspecified side; Z59.02 Unsheltered homelessness
CPT/HCPCS: 36415; 80053; 84450; 85027; 86780; 87811; 93005; 93010; C9803-CS; U0003; U0005

== ENCOUNTER 2021-12-21 12:06 | Inpatient (IN) | payer OTHER ==
[2021-12-21] MEDS ORDERED: MAG HYDROX/AL HYDROX/SIMETH 30 ML UNIT-DOSE CUP PO PRN (14:52)
[2021-12-21] MEDS ORDERED: LOPERAMIDE HCL 2 MG CAPSULE PO PRN (14:52)
[2021-12-21] MEDS ORDERED: IBUPROFEN 400 MG TABLET (FP) PO PRN (14:52)
[2021-12-21] MEDS ORDERED: MAGNESIUM HYDROX 2400MG/30ML ORAL SUSPENSION 30 ML CUP PO PRN (14:52)
[2021-12-21] MEDS ORDERED: ACETAMINOPHEN 325 MG TABLET (FP) PO PRN (14:52)
[2021-12-21] MEDS ORDERED: NICOTINE 10 MG CARTRIDGE (INHALER) IH PRN (14:52)
[2021-12-21] MEDS ORDERED: MAGNESIUM CITRATE 300 ML BOTTLE PO PRN (14:52)
[2021-12-21] MEDS ORDERED: BENZOCAINE/MENTHOL (CHLORASEPTIC ) LOZENGE MM PRN (14:52)
[2021-12-21] MEDS ORDERED: guaiFENesin 200 MG/10 ML 10 ML UNIT-DOSE CUPS PO PRN (14:52)
[2021-12-21] MEDS ORDERED: hydrOXYzine PAMOATE 25 MG CAPSULE (FP) PO PRN (14:52)
[2021-12-21] MEDS ORDERED: P-EPHED 60MG/TRIPROLIDI 2.5MG TABLET PO PRN (14:52)
[2021-12-21] MEDS: THIAMINE HCL 100 MG TABLET (FP) PO SCH (21:34)
[2021-12-21] MEDS: MELATONIN 5 MG TABLETS PO SCH (21:34)
[2021-12-22] MEDS: PRENATAL VITAMINS W/ FOLIC ACID TABLET (FP) PO SCH (09:43)
[2021-12-22] MEDS: NICOTINE 7 MG/24 HOURS TOPICAL PATCH TD SCH (09:43)
[2021-12-22] MEDS: THIAMINE HCL 100 MG TABLET (FP) PO SCH (21:15)
[2021-12-22] MEDS: MELATONIN 5 MG TABLETS PO SCH (21:15)
[2021-12-23] MEDS: PRENATAL VITAMINS W/ FOLIC ACID TABLET (FP) PO SCH (09:49)
[2021-12-23] MEDS: NICOTINE 7 MG/24 HOURS TOPICAL PATCH TD SCH (09:49)
[2021-12-23] MEDS: THIAMINE HCL 100 MG TABLET (FP) PO SCH (21:14)
[2021-12-23] MEDS: MELATONIN 5 MG TABLETS PO SCH (21:14)
[2021-12-24] MEDS: NICOTINE 7 MG/24 HOURS TOPICAL PATCH TD SCH (09:26)
[2021-12-24] MEDS: PRENATAL VITAMINS W/ FOLIC ACID TABLET (FP) PO SCH (09:26)
[2021-12-24] MEDS: THIAMINE HCL 100 MG TABLET (FP) PO SCH (21:12)
[2021-12-24] MEDS: MELATONIN 5 MG TABLETS PO SCH (21:12)
[2021-12-25] MEDS: PRENATAL VITAMINS W/ FOLIC ACID TABLET (FP) PO SCH (09:49)
[2021-12-25] MEDS: NICOTINE 7 MG/24 HOURS TOPICAL PATCH TD SCH (09:49)
[2021-12-25] MEDS: MELATONIN 5 MG TABLETS PO SCH (21:24)
[2021-12-25] MEDS: THIAMINE HCL 100 MG TABLET (FP) PO SCH (21:24)
[2021-12-26] MEDS: NICOTINE 7 MG/24 HOURS TOPICAL PATCH TD SCH (10:05)
[2021-12-26] MEDS: PRENATAL VITAMINS W/ FOLIC ACID TABLET (FP) PO SCH (10:05)
[2021-12-26] MEDS: COLLOIDAL OATMEAL 1 BAR EACH TP PRN (12:08)
[2021-12-26] MEDS: MELATONIN 5 MG TABLETS PO SCH (21:31)
[2021-12-26] MEDS: THIAMINE HCL 100 MG TABLET (FP) PO SCH (21:31)
[2021-12-27] MEDS: PRENATAL VITAMINS W/ FOLIC ACID TABLET (FP) PO SCH (09:52)
[2021-12-27] MEDS: NICOTINE 7 MG/24 HOURS TOPICAL PATCH TD SCH (09:52)
[2021-12-27] MEDS: THIAMINE HCL 100 MG TABLET (FP) PO SCH (21:34)
[2021-12-27] MEDS: MELATONIN 5 MG TABLETS PO SCH (21:34)
[2021-12-28] MEDS: PRENATAL VITAMINS W/ FOLIC ACID TABLET (FP) PO SCH (09:50)
[2021-12-28] MEDS: NICOTINE 7 MG/24 HOURS TOPICAL PATCH TD SCH (09:51)
[2021-12-28] MEDS: THIAMINE HCL 100 MG TABLET (FP) PO SCH (21:34)
[2021-12-28] MEDS: MELATONIN 5 MG TABLETS PO SCH (21:34)
[2021-12-29] MEDS: PRENATAL VITAMINS W/ FOLIC ACID TABLET (FP) PO SCH (09:50)
[2021-12-29] MEDS: NICOTINE 7 MG/24 HOURS TOPICAL PATCH TD SCH (09:51)
[2021-12-29] MEDS: MELATONIN 5 MG TABLETS PO SCH (21:19)
[2021-12-29] MEDS: THIAMINE HCL 100 MG TABLET (FP) PO SCH (21:19)
[2021-12-30] MEDS: NICOTINE 7 MG/24 HOURS TOPICAL PATCH TD SCH (09:48)
[2021-12-30] MEDS: PRENATAL VITAMINS W/ FOLIC ACID TABLET (FP) PO SCH (09:48)
[2021-12-30] MEDS: GABAPENTIN 100 MG CAPSULE PO SCH ×2 (14:06→21:37)
[2021-12-30] MEDS: THIAMINE HCL 100 MG TABLET (FP) PO SCH (21:37)
[2021-12-30] MEDS: MELATONIN 5 MG TABLETS PO SCH (21:37)
[2021-12-31] MEDS: GABAPENTIN 100 MG CAPSULE PO SCH ×3 (06:48→21:25)
[2021-12-31] MEDS: PRENATAL VITAMINS W/ FOLIC ACID TABLET (FP) PO SCH (09:49)
[2021-12-31] MEDS: NICOTINE 7 MG/24 HOURS TOPICAL PATCH TD SCH (09:49)
[2021-12-31] MEDS: MELATONIN 5 MG TABLETS PO SCH (21:25)
[2021-12-31] MEDS: THIAMINE HCL 100 MG TABLET (FP) PO SCH (21:25)
[2022-01-01] MEDS: GABAPENTIN 100 MG CAPSULE PO SCH ×3 (06:41→21:21)
[2022-01-01] MEDS: PRENATAL VITAMINS W/ FOLIC ACID TABLET (FP) PO SCH (09:52)
[2022-01-01] MEDS: NICOTINE 7 MG/24 HOURS TOPICAL PATCH TD SCH (09:53)
[2022-01-01] MEDS: MELATONIN 5 MG TABLETS PO SCH (21:21)
[2022-01-01] MEDS: THIAMINE HCL 100 MG TABLET (FP) PO SCH (21:21)
[2022-01-02] MEDS: GABAPENTIN 100 MG CAPSULE PO SCH ×3 (06:36→21:30)
[2022-01-02] MEDS: NICOTINE 7 MG/24 HOURS TOPICAL PATCH TD SCH (09:50)
[2022-01-02] MEDS: PRENATAL VITAMINS W/ FOLIC ACID TABLET (FP) PO SCH (09:50)
[2022-01-02] MEDS: MELATONIN 5 MG TABLETS PO SCH (21:30)
[2022-01-02] MEDS: THIAMINE HCL 100 MG TABLET (FP) PO SCH (21:30)
[2022-01-03] MEDS: GABAPENTIN 100 MG CAPSULE PO SCH ×3 (06:52→21:26)
[2022-01-03] MEDS: NICOTINE 7 MG/24 HOURS TOPICAL PATCH TD SCH (09:48)
[2022-01-03] MEDS: PRENATAL VITAMINS W/ FOLIC ACID TABLET (FP) PO SCH (09:48)
[2022-01-03] MEDS: THIAMINE HCL 100 MG TABLET (FP) PO SCH (21:26)
[2022-01-03] MEDS: MELATONIN 5 MG TABLETS PO SCH (21:26)
[2022-01-04] MEDS: GABAPENTIN 100 MG CAPSULE PO SCH ×3 (06:53→21:23)
[2022-01-04] MEDS: PRENATAL VITAMINS W/ FOLIC ACID TABLET (FP) PO SCH (09:43)
[2022-01-04] MEDS: NICOTINE 7 MG/24 HOURS TOPICAL PATCH TD SCH (09:43)
[2022-01-04] MEDS: MELATONIN 5 MG TABLETS PO SCH (21:23)
[2022-01-04] MEDS: THIAMINE HCL 100 MG TABLET (FP) PO SCH (21:23)
[2022-01-05] MEDS: GABAPENTIN 100 MG CAPSULE PO SCH ×3 (06:50→21:31)
[2022-01-05] MEDS: NICOTINE 7 MG/24 HOURS TOPICAL PATCH TD SCH (09:58)
[2022-01-05] MEDS: PRENATAL VITAMINS W/ FOLIC ACID TABLET (FP) PO SCH (09:58)
[2022-01-05] MEDS: MELATONIN 5 MG TABLETS PO SCH (21:30)
[2022-01-05] MEDS: THIAMINE HCL 100 MG TABLET (FP) PO SCH (21:31)
[2022-01-06] MEDS: GABAPENTIN 100 MG CAPSULE PO SCH ×3 (06:07→21:17)
[2022-01-06] MEDS: PRENATAL VITAMINS W/ FOLIC ACID TABLET (FP) PO SCH (09:38)
[2022-01-06] MEDS: NICOTINE 7 MG/24 HOURS TOPICAL PATCH TD SCH (09:38)
[2022-01-06] MEDS: THIAMINE HCL 100 MG TABLET (FP) PO SCH (21:16)
[2022-01-06] MEDS: MELATONIN 5 MG TABLETS PO SCH (21:16)
[2022-01-07] MEDS: GABAPENTIN 100 MG CAPSULE PO SCH ×3 (06:31→22:11)
[2022-01-07] MEDS: PRENATAL VITAMINS W/ FOLIC ACID TABLET (FP) PO SCH (09:32)
[2022-01-07] MEDS: NICOTINE 7 MG/24 HOURS TOPICAL PATCH TD SCH (09:32)
[2022-01-07] MEDS: THIAMINE HCL 100 MG TABLET (FP) PO SCH (22:11)
[2022-01-07] MEDS: MELATONIN 5 MG TABLETS PO SCH (22:11)
[2022-01-08] MEDS: GABAPENTIN 100 MG CAPSULE PO SCH ×3 (06:42→21:33)
[2022-01-08] MEDS: PRENATAL VITAMINS W/ FOLIC ACID TABLET (FP) PO SCH (09:30)
[2022-01-08] MEDS: NICOTINE 7 MG/24 HOURS TOPICAL PATCH TD SCH (09:31)
[2022-01-08] MEDS: MELATONIN 5 MG TABLETS PO SCH (21:33)
[2022-01-08] MEDS: THIAMINE HCL 100 MG TABLET (FP) PO SCH (21:34)
[2022-01-09] MEDS: GABAPENTIN 100 MG CAPSULE PO SCH ×3 (07:13→21:34)
[2022-01-09] MEDS: COLLOIDAL OATMEAL 1 BAR EACH TP PRN (09:39)
[2022-01-09] MEDS: PRENATAL VITAMINS W/ FOLIC ACID TABLET (FP) PO SCH (09:39)
[2022-01-09] MEDS: NICOTINE 7 MG/24 HOURS TOPICAL PATCH TD SCH (09:39)
[2022-01-09] MEDS: NALTREXONE HCL 50 MG TABLET PO SCH (12:12)
[2022-01-09] MEDS: MELATONIN 5 MG TABLETS PO SCH (21:34)
[2022-01-09] MEDS: THIAMINE HCL 100 MG TABLET (FP) PO SCH (21:34)
[2022-01-10] MEDS: GABAPENTIN 100 MG CAPSULE PO SCH ×3 (06:42→21:06)
[2022-01-10] MEDS: NALTREXONE HCL 50 MG TABLET PO SCH (09:52)
[2022-01-10] MEDS: PRENATAL VITAMINS W/ FOLIC ACID TABLET (FP) PO SCH (09:53)
[2022-01-10] MEDS: NICOTINE 7 MG/24 HOURS TOPICAL PATCH TD SCH (09:53)
[2022-01-10] MEDS: MELATONIN 5 MG TABLETS PO SCH (21:06)
[2022-01-10] MEDS: THIAMINE HCL 100 MG TABLET (FP) PO SCH (21:06)
[2022-01-11] MEDS: GABAPENTIN 100 MG CAPSULE PO SCH ×3 (06:04→21:24)
[2022-01-11] MEDS: PRENATAL VITAMINS W/ FOLIC ACID TABLET (FP) PO SCH (09:37)
[2022-01-11] MEDS: NALTREXONE HCL 50 MG TABLET PO SCH (09:37)
[2022-01-11] MEDS: NICOTINE 7 MG/24 HOURS TOPICAL PATCH TD SCH (09:38)
[2022-01-11] MEDS: THIAMINE HCL 100 MG TABLET (FP) PO SCH (21:25)
[2022-01-11] MEDS: MELATONIN 5 MG TABLETS PO SCH (21:25)
[2022-01-12] MEDS: GABAPENTIN 100 MG CAPSULE PO SCH ×3 (06:08→21:32)
[2022-01-12] MEDS: NALTREXONE HCL 50 MG TABLET PO SCH (09:46)
[2022-01-12] MEDS: NICOTINE 7 MG/24 HOURS TOPICAL PATCH TD SCH (09:46)
[2022-01-12] MEDS: PRENATAL VITAMINS W/ FOLIC ACID TABLET (FP) PO SCH (09:46)
[2022-01-12] MEDS ORDERED: NALTREXONE MICROSPHERES (VIVITROL) 380 MG DISP.SYRIN IM ONE (10:00)
[2022-01-12] MEDS: MELATONIN 5 MG TABLETS PO SCH (21:32)
[2022-01-12] MEDS: THIAMINE HCL 100 MG TABLET (FP) PO SCH (21:33)
[2022-01-13] MEDS: GABAPENTIN 100 MG CAPSULE PO SCH (05:56)
[2022-01-13 06:40] VITALS: TEMP 97.3
[2022-01-13 08:48] VITALS: BP 131/75; PULSE 89
[2022-01-13] MEDS: PRENATAL VITAMINS W/ FOLIC ACID TABLET (FP) PO SCH (09:03)
[2022-01-13] MEDS: NICOTINE 7 MG/24 HOURS TOPICAL PATCH TD SCH (09:04)
[2022-01-13] MEDS: NALTREXONE HCL 50 MG TABLET PO SCH (09:04)
== END 2022-01-13 09:20 | disposition home or self-care (01) | DRG 772 ==
LOC: YASAS 12:06 → Y3E 12:07
PROVIDERS: ADMIT Allergy & Immunology; ATTEND Psychiatry & Neurology Addiction Medicine
PROC: HZ42ZZZ Group Counseling for Substance Abuse Treatment, Cognitive-Behavioral (ICD-10-PCS; principal; 2021-12-21)
DX: F10.20 Alcohol dependence, uncomplicated (principal); F14.20 Cocaine dependence, uncomplicated; F17.210 Nicotine dependence, cigarettes, uncomplicated; I10 Essential (primary) hypertension; M54.30 Sciatica, unspecified side; M10.9 Gout, unspecified; Z59.00 Homelessness unspecified

== ENCOUNTER 2023-11-27 11:32 | Inpatient (IN) | payer OTHER ==
[2023-11-27 13:47] VITALS: BMI 19.8
[2023-11-27] MEDS ORDERED: NICOTINE POLACRILEX 2 MG GUM BUC PRN (14:30)
[2023-11-27] MEDS ORDERED: ACETAMINOPHEN 325 MG TABLET (FP) PO PRN (14:30)
[2023-11-27] MEDS ORDERED: NICOTINE 7 MG/24 HOURS TOPICAL PATCH TD PRN (14:30)
[2023-11-27] MEDS ORDERED: LOPERAMIDE HCL 2 MG CAPSULE PO PRN (14:30)
[2023-11-27] MEDS ORDERED: guaiFENesin 600 MG TABLET.ER (FP) PO PRN (14:30)
[2023-11-27] MEDS ORDERED: METHOCARBAMOL 500 MG TABLET PO PRN (14:30)
[2023-11-27] MEDS ORDERED: BENZONATATE 200 MG CAPSULE PO PRN (14:30)
[2023-11-27] MEDS ORDERED: diazePAM 5 MG TABLET PO PRN (14:30)
[2023-11-27] MEDS ORDERED: ONDANSETRON *ODT* 4 MG TABLET SL PRN (14:30)
[2023-11-27] MEDS ORDERED: MAG HYDROX/AL HYDROX/SIMETH 30 ML UNIT-DOSE CUP PO PRN (14:30)
[2023-11-27] MEDS ORDERED: IBUPROFEN 400 MG TABLET (FP) PO PRN (14:30)
[2023-11-27] MEDS ORDERED: BISMUTH SUBSALICYLATE 262 MG/15 ML BTL PO PRN (14:30)
[2023-11-27] MEDS ORDERED: IBUPROFEN 600 MG TABLET (FP) PO PRN (14:30)
[2023-11-27] MEDS ORDERED: POLYETHYLENE GLYCOL (HEALTHYLAX) 3350 17 GM PACKET PO PRN (14:30)
[2023-11-27] MEDS ORDERED: DICYCLOMINE HCL 10 MG CAPSULE PO PRN (14:30)
[2023-11-27] MEDS ORDERED: BENZOCAINE/MENTHOL (CHLORASEPTIC ) LOZENGE MM PRN (14:30)
[2023-11-27] MEDS ORDERED: hydrOXYzine PAMOATE 25 MG CAPSULE (FP) PO PRN (14:30)
[2023-11-27] MEDS ORDERED: MAGNESIUM HYDROX 2400MG/30ML ORAL SUSPENSION 30 ML CUP PO PRN (14:30)
[2023-11-27] MEDS: diazePAM 5 MG TABLET PO SCH (17:45)
[2023-11-27] MEDS: THIAMINE 100 MG TABLET PO SCH (22:16)
[2023-11-27] MEDS: GABAPENTIN 100 MG CAPSULE PO SCH (22:16)
[2023-11-27] MEDS: MELATONIN 5 MG TABLETS PO SCH (23:47)
[2023-11-28] MEDS: PRENATAL VITAMINS W/ FOLIC ACID TABLET (FP) PO SCH (10:10)
[2023-11-28 11:34] LABS: HEMATOCRIT 40.6 % (35.4-49); HEMOGLOBIN 13.8 GM/dL (11.7-16.9); MCH 32.1 pg (25.7-33.7); MEAN CELL VOLUME 94.3 fl (80-96); MEAN PLT VOLUME 8.6 fl (7.5-11.1); PLATELET COUNT 203 10^3/uL (134-434); RDW 15.1 % (11.9-15.9); WHITE BLOOD COUNT 7.2 K/mm3 (4.0-10.0)
[2023-11-28 12:01] LABS: POTASSIUM 4.1 mmol/L (3.5-5.1)
[2023-11-28 12:17] LABS: ALBUMIN 3.7 g/dl (3.4-5.0); BLOOD UREA NITROGEN 12.3 mg/dL (7-18); CALCIUM 9.4 mg/dL (8.5-10.1)
[2023-11-28 12:18] LABS: MAGNESIUM 1.6 mg/dL (1.8-2.4)
[2023-11-28 12:21] LABS: BILIRUBIN,TOTAL 0.6 mg/dL (0.2-1)
[2023-11-28 12:22] LABS: TOT PROT 7.3 g/dl (6.4-8.2)
[2023-11-29] MEDS: diazePAM 5 MG TABLET PO SCH (05:48)
[2023-11-29] MEDS: MAGNESIUM OXIDE 400 MG TABLET (FP) PO SCH (13:50)
[2023-11-30] MEDS: diazePAM 5 MG TABLET PO SCH (05:57)
[2023-12-01] MEDS: diazePAM 5 MG TABLET PO ONE (05:22)
[2023-12-01 09:04] VITALS: BP 113/75; PULSE 107; RESP 16; TEMP 98.2
== END 2023-12-01 10:19 | disposition home or self-care (01) | DRG 774 ==
LOC: YASAS 11:32 → Y6N 14:41
PROVIDERS: ADMIT Allergy & Immunology; ATTEND Surgery
PROC: HZ2ZZZZ Detoxification Services for Substance Abuse Treatment (ICD-10-PCS; principal; 2023-11-27)
DX: F10.230 Alcohol dependence with withdrawal, uncomplicated (principal); F14.20 Cocaine dependence, uncomplicated; F17.210 Nicotine dependence, cigarettes, uncomplicated; F19.282 Other psychoactive substance dependence with psychoactive substance-induced sleep disorder; I10 Essential (primary) hypertension; M10.9 Gout, unspecified; M54.30 Sciatica, unspecified side; Z91.410 Personal history of adult physical and sexual abuse; Z63.0 Problems in relationship with spouse or partner; Z59.00 Homelessness unspecified
CPT/HCPCS: 36415; 80053; 80305; 83735; 84443; 85027; 86780; 93005; 93010

== ENCOUNTER 2024-01-18 18:17 | Inpatient (IN) | payer OTHER ==
[2024-01-18 19:06] VITALS: BMI 17.0
[2024-01-18] MEDS ORDERED: guaiFENesin 600 MG TABLET.ER (FP) PO PRN (21:24)
[2024-01-18] MEDS ORDERED: NICOTINE POLACRILEX 2 MG LOZENGE BC PRN (21:24)
[2024-01-18] MEDS ORDERED: ACETAMINOPHEN 325 MG TABLET (FP) PO PRN (21:24)
[2024-01-18] MEDS ORDERED: P-EPHED 60MG/TRIPROLIDI 2.5MG TABLET PO PRN (21:24)
[2024-01-18] MEDS ORDERED: LOPERAMIDE HCL 2 MG CAPSULE PO PRN (21:24)
[2024-01-18] MEDS ORDERED: IBUPROFEN 600 MG TABLET (FP) PO PRN (21:24)
[2024-01-18] MEDS ORDERED: BENZOCAINE/MENTHOL (CHLORASEPTIC ) LOZENGE MM PRN (21:24)
[2024-01-18] MEDS ORDERED: NICOTINE POLACRILEX 2 MG GUM BUC PRN (21:24)
[2024-01-18] MEDS ORDERED: IBUPROFEN 400 MG TABLET (FP) PO PRN (21:24)
[2024-01-18] MEDS ORDERED: BENZONATATE 200 MG CAPSULE PO PRN (21:24)
[2024-01-18] MEDS ORDERED: hydrOXYzine PAMOATE 25 MG CAPSULE (FP) PO PRN (21:24)
[2024-01-18] MEDS: MELATONIN 5 MG TABLETS PO SCH (22:40)
[2024-01-18] MEDS: MAGNESIUM OXIDE 400 MG TABLET (FP) PO SCH (22:40)
[2024-01-18] MEDS: THIAMINE 100 MG TABLET PO SCH (22:40)
[2024-01-19] MEDS: PRENATAL VITAMINS W/ FOLIC ACID TABLET (FP) PO SCH (09:23)
[2024-01-19 11:11] LABS: HEMATOCRIT 41.7 % (35.4-49); HEMOGLOBIN 13.8 GM/dL (11.7-16.9); MCH 31.8 pg (25.7-33.7); MCHC 33.1 g/dl (32.0-35.9); MEAN CELL VOLUME 96.1 fl (80-96); MEAN PLT VOLUME 8.4 fl (7.5-11.1); PLATELET COUNT 212 10^3/uL (134-434); RBC 4.34 M/mm3 (4.00-5.60); RDW 14.6 % (11.9-15.9); WHITE BLOOD COUNT 6.9 K/mm3 (4.0-10.0)
[2024-01-19 11:15] LABS: CHLORIDE 106 mmol/L (98-107); POTASSIUM 4.5 mmol/L (3.5-5.1); SODIUM 143 mmol/L (136-145)
[2024-01-19 11:16] LABS: PH,URINE 5.5 (5.0-8.0); URINE APPEARANCE CLEAR; URINE BILIRUBIN NEGATIVE (NEGATIVE); URINE COLOR YELLOW; URINE GLUCOSE (UA) TRACE (NEGATIVE); URINE KETONE TRACE (NEGATIVE); URINE LEUK ESTERASE NEGATIVE (NEGATIVE); URINE NITRITE NEGATIVE (NEGATIVE); URINE PROTEIN NEGATIVE (NEGATIVE)
[2024-01-19 11:23] LABS: CALCIUM 9.4 mg/dL (8.5-10.1)
[2024-01-19 11:24] LABS: ALBUMIN 3.6 g/dl (3.4-5.0); ANION GAP 6 mmol/L (4-13); BLOOD UREA NITROGEN 17.8 mg/dL (7-18); CO2 31 mmol/L (21-32); GLUCOSE,RANDOM 108 mg/dL (74-106)
[2024-01-19 11:27] LABS: SGOT/AST 17 U/L (15-37); SGPT/ALT 15 U/L (13-61)
[2024-01-19 11:29] LABS: BILIRUBIN,TOTAL 0.4 mg/dL (0.2-1); TOT PROT 7.3 g/dl (6.4-8.2)
[2024-01-19 11:30] LABS: ALK PHOS 100 U/L (45-117)
[2024-01-21] MEDS: GABAPENTIN 100 MG CAPSULE PO SCH (15:48)
[2024-01-21] MEDS: MAG HYDROX/AL HYDROX/SIMETH 30 ML UNIT-DOSE CUP PO PRN (21:34)
[2024-01-22 13:53] LABS: INR 0.95 (0.83-1.09); PROTHROMBIN TIME (PATIENT) 10.9 SEC (9.7-13.0)
[2024-01-28] MEDS: COLCHICINE 0.6 MG CAPSULE PO SCH (13:55)
[2024-01-29] MEDS: MAGNESIUM HYDROX 2400MG/30ML ORAL SUSPENSION 30 ML CUP PO PRN (07:00)
[2024-01-29] MEDS: POLYETHYLENE GLYCOL (HEALTHYLAX) 3350 17 GM PACKET PO PRN (13:21)
[2024-01-31] MEDS ORDERED: BENZONATATE 200 MG CAPSULE PO PRN (13:04)
[2024-01-31] MEDS ORDERED: guaiFENesin 600 MG TABLET.ER (FP) PO PRN (13:04)
[2024-01-31] MEDS: OXYMETAZOLINE 0.05% NASAL SOLUTION 15 ML BOTTLE NS PRN (21:04)
[2024-02-11] MEDS: LIDOCAINE 5% TOPICAL PATCH TP SCH (10:02)
[2024-02-11] MEDS: LIDOCAINE PATCH REMOVAL MC SCH (21:58)
[2024-02-14 06:28] VITALS: TEMP 97.3
[2024-02-15 09:16] VITALS: BP 123/77; PULSE 93; RESP 19
== END 2024-02-15 09:57 | disposition home or self-care (01) | DRG 772 ==
LOC: YASAS 18:17 → Y3W 21:58
PROVIDERS: ADMIT Allergy & Immunology; ATTEND Psychiatry & Neurology Pain Medicine
PROC: HZ42ZZZ Group Counseling for Substance Abuse Treatment, Cognitive-Behavioral (ICD-10-PCS; principal; 2024-01-18)
DX: F10.20 Alcohol dependence, uncomplicated (principal); F14.20 Cocaine dependence, uncomplicated; F17.210 Nicotine dependence, cigarettes, uncomplicated; F19.982 Other psychoactive substance use, unspecified with psychoactive substance-induced sleep disorder; I10 Essential (primary) hypertension; M54.30 Sciatica, unspecified side; M10.9 Gout, unspecified; M19.90 Unspecified osteoarthritis, unspecified site; J06.9 Acute upper respiratory infection, unspecified; Z56.0 Unemployment, unspecified; Z59.00 Homelessness unspecified
CPT/HCPCS: 0241U-QW; 36415; 80053; 80305; 80307; 81003; 82140; 83735; 85027; 85610; 86780; 87811

== ENCOUNTER 2025-03-10 09:04 | Inpatient (IN) | payer OTHER ==
[2025-03-10 09:30] VITALS: BMI 21.2
[2025-03-10] MEDS ORDERED: NICOTINE POLACRILEX 2 MG GUM BUC PRN (10:08)
[2025-03-10] MEDS ORDERED: BENZOCAINE/MENTHOL (CHLORASEPTIC ) LOZENGE MM PRN (10:08)
[2025-03-10] MEDS ORDERED: guaiFENesin 600 MG TABLET.ER (FP) PO PRN (10:08)
[2025-03-10] MEDS ORDERED: ACETAMINOPHEN 325 MG TABLET (FP) PO PRN (10:08)
[2025-03-10] MEDS ORDERED: MAG HYDROX/AL HYDROX/SIMETH 30 ML UNIT-DOSE CUP PO PRN (10:08)
[2025-03-10] MEDS ORDERED: POLYETHYLENE GLYCOL (HEALTHYLAX) 3350 17 GM PACKET PO PRN (10:08)
[2025-03-10] MEDS ORDERED: MAGNESIUM HYDROX 2400MG/30ML ORAL SUSPENSION 30 ML CUP PO PRN (10:08)
[2025-03-10] MEDS ORDERED: DICYCLOMINE HCL 10 MG CAPSULE PO PRN (10:08)
[2025-03-10] MEDS ORDERED: LOPERAMIDE HCL 2 MG CAPSULE PO PRN (10:08)
[2025-03-10] MEDS ORDERED: BENZONATATE 200 MG CAPSULE PO PRN (10:08)
[2025-03-10] MEDS ORDERED: NALOXONE (NARCAN) HCL 4 MG/0.1 ML SPRAY NS PRN (10:08)
[2025-03-10] MEDS ORDERED: NICOTINE POLACRILEX 2 MG LOZENGE BC PRN (10:08)
[2025-03-10] MEDS ORDERED: BISMUTH SUBSALICYLATE 524 MG/30 ML PO PRN (10:08)
[2025-03-10] MEDS ORDERED: IBUPROFEN 400 MG TABLET (FP) PO PRN (10:08)
[2025-03-10] MEDS: ONDANSETRON *ODT* 4 MG TABLET SL PRN (15:23)
[2025-03-10] MEDS: hydrALAZINE HCL 25 MG TABLET (FP) PO ONE (23:23)
[2025-03-10] MEDS: MELATONIN 5 MG TABLETS PO SCH (23:23)
[2025-03-10] MEDS: THIAMINE 100 MG TABLET PO SCH (23:24)
[2025-03-10] MEDS: METHOCARBAMOL 500 MG TABLET PO PRN (23:24)
[2025-03-11] MEDS: PRENATAL VITAMINS W/ FOLIC ACID TABLET (FP) PO SCH (10:11)
[2025-03-11] MEDS: ALLOPURINOL 100 MG TABLET (FP) PO SCH (10:12)
[2025-03-11 11:03] LABS: MCHC 31.9 g/dl (32.3-36.5); MEAN CELL VOLUME 95.0 fl (79.0-92.2); MEAN PLT VOLUME 11.1 fl (9.4-12.4); RDW 17.6 % (12.2-16.4)
[2025-03-11] MEDS: PNEUMOC 20-VAL CONJ-DIP CRM/PF 0.5 ML SYRINGE IM ONE (12:00)
[2025-03-11 12:20] LABS: GLUCOSE,RANDOM 104.0 mg/dL (74-106); TOT PROT 7.9 g/dl (6.4-8.2)
[2025-03-11 12:23] LABS: ALK PHOS 79.0 U/L (40-150)
[2025-03-11 12:25] LABS: CREATININE 1.3 mg/dL (0.55-1.3); SGOT/AST 57.0 U/L (5-34); SGPT/ALT 28.0 U/L (0-55)
[2025-03-11 12:42] LABS: CO2 20.0 mmol/L (21-32)
[2025-03-11] MEDS ORDERED: GABAPENTIN 100 MG CAPSULE PO PRN (22:00)
[2025-03-12] MEDS: hydrOXYzine PAMOATE 25 MG CAPSULE (FP) PO PRN (05:55)
[2025-03-12] MEDS: IBUPROFEN 600 MG TABLET (FP) PO PRN (22:24)
[2025-03-13] MEDS: CYANOCOBALAMIN 1,000 MCG TABLET (FP) PO SCH (14:05)
[2025-03-13] MEDS: METOPROLOL TARTRATE 25 MG TABLET (FP) PO ONE (19:26)
[2025-03-15 13:22] VITALS: BP 126/76; PULSE 110; RESP 16; TEMP 98.3
== END 2025-03-15 14:45 | disposition home or self-care (01) | DRG 774 ==
LOC: YASAS 09:04 → Y6N 11:16
PROVIDERS: ADMIT Neuromusculoskeletal Medicine & OMM; ATTEND Counselor Addiction (Substance Use Disorder)
PROC: HZ2ZZZZ Detoxification Services for Substance Abuse Treatment (ICD-10-PCS; principal; 2025-03-10)
DX: F10.230 Alcohol dependence with withdrawal, uncomplicated (principal); F14.20 Cocaine dependence, uncomplicated; F17.210 Nicotine dependence, cigarettes, uncomplicated; I10 Essential (primary) hypertension; M10.9 Gout, unspecified; R42 Dizziness and giddiness; R74.01 Elevation of levels of liver transaminase levels; Z86.59 Personal history of other mental and behavioral disorders
CPT/HCPCS: 36415; 80053; 80307; 82140; 85027; 86780; 90677; 93005; 93010; Q0162

== ENCOUNTER 2025-05-14 13:27 | Inpatient (IN) | payer OTHER ==
[2025-05-14 13:55] VITALS: BMI 21.2
[2025-05-14] MEDS ORDERED: BISMUTH SUBSALICYLATE 524 MG/30 ML PO PRN (14:34)
[2025-05-14] MEDS ORDERED: MAGNESIUM HYDROX 2400MG/30ML ORAL SUSPENSION 30 ML CUP PO PRN (14:34)
[2025-05-14] MEDS ORDERED: IBUPROFEN 400 MG TABLET (FP) PO PRN (14:34)
[2025-05-14] MEDS ORDERED: NICOTINE POLACRILEX 2 MG LOZENGE BC PRN (14:34)
[2025-05-14] MEDS ORDERED: BENZOCAINE/MENTHOL (CHLORASEPTIC ) LOZENGE MM PRN (14:34)
[2025-05-14] MEDS ORDERED: POLYETHYLENE GLYCOL (HEALTHYLAX) 3350 17 GM PACKET PO PRN (14:34)
[2025-05-14] MEDS ORDERED: MAG HYDROX/AL HYDROX/SIMETH 30 ML UNIT-DOSE CUP PO PRN (14:34)
[2025-05-14] MEDS ORDERED: ONDANSETRON *ODT* 4 MG TABLET SL PRN (14:34)
[2025-05-14] MEDS ORDERED: BENZONATATE 200 MG CAPSULE PO PRN (14:34)
[2025-05-14] MEDS ORDERED: NICOTINE POLACRILEX 2 MG GUM BUC PRN (14:34)
[2025-05-14] MEDS ORDERED: DICYCLOMINE HCL 10 MG CAPSULE PO PRN (14:34)
[2025-05-14] MEDS ORDERED: guaiFENesin 600 MG TABLET.ER (FP) PO PRN (14:34)
[2025-05-14] MEDS ORDERED: NALOXONE (NARCAN) HCL 4 MG/0.1 ML SPRAY NS PRN (14:34)
[2025-05-14] MEDS ORDERED: ACETAMINOPHEN 325 MG TABLET (FP) PO PRN (14:34)
[2025-05-14] MEDS: METHOCARBAMOL 500 MG TABLET PO PRN (17:21)
[2025-05-14] MEDS: hydrOXYzine PAMOATE 25 MG CAPSULE (FP) PO PRN (17:21)
[2025-05-14] MEDS: THIAMINE 100 MG TABLET PO SCH (22:00)
[2025-05-14] MEDS: MELATONIN 5 MG TABLETS PO SCH (22:00)
[2025-05-15] MEDS: LOPERAMIDE HCL 2 MG CAPSULE PO PRN (10:11)
[2025-05-15] MEDS: PRENATAL VITAMINS W/ FOLIC ACID TABLET (FP) PO SCH (10:11)
[2025-05-15 12:04] LABS: MCHC 33.6 g/dl (32.3-36.5); MEAN CELL VOLUME 93.9 fl (79.0-92.2); MEAN PLT VOLUME 10.7 fl (9.4-12.4); RDW 17.2 % (12.2-16.4)
[2025-05-15] MEDS: ALLOPURINOL 100 MG TABLET (FP) PO SCH (12:49)
[2025-05-15 13:31] LABS: GLUCOSE,RANDOM 139 mg/dL (74-106)
[2025-05-15 13:32] LABS: TOT PROT 7.5 g/dl (6.4-8.2)
[2025-05-15 13:33] LABS: CO2 30 mmol/L (21-32)
[2025-05-15 13:34] LABS: ALK PHOS 78 U/L (40-150)
[2025-05-15 13:37] LABS: CREATININE 0.98 mg/dL (0.55-1.3); SGOT/AST 78 U/L (5-34); SGPT/ALT 40 U/L (0-55)
[2025-05-15] MEDS: amLODIPine BESYLATE 10 MG TABLET (FP) PO SCH (21:17)
[2025-05-16] MEDS ORDERED: ESCITALOPRAM OXALATE 10 MG TABLET PO SCH (10:00)
[2025-05-16] MEDS: GABAPENTIN 100 MG CAPSULE PO PRN (22:28)
[2025-05-17] MEDS: ESCITALOPRAM OXALATE 10 MG TABLET PO SCH (10:32)
[2025-05-18] MEDS: IBUPROFEN 600 MG TABLET (FP) PO PRN (20:52)
[2025-05-19 13:02] VITALS: BP 138/89; PULSE 90; RESP 17; TEMP 97.4
== END 2025-05-19 13:38 | disposition other institution (70) | DRG 774 ==
LOC: YASAS 13:27 → Y3N 14:56
PROVIDERS: ADMIT Allergy & Immunology; ATTEND Student in an Organized Health Care Education/Training Program
PROC: HZ2ZZZZ Detoxification Services for Substance Abuse Treatment (ICD-10-PCS; principal; 2025-05-14)
DX: F10.230 Alcohol dependence with withdrawal, uncomplicated (principal); F14.20 Cocaine dependence, uncomplicated; F17.210 Nicotine dependence, cigarettes, uncomplicated; F19.282 Other psychoactive substance dependence with psychoactive substance-induced sleep disorder; F19.24 Other psychoactive substance dependence with psychoactive substance-induced mood disorder; F10.280 Alcohol dependence with alcohol-induced anxiety disorder; F32.A Depression, unspecified; F41.9 Anxiety disorder, unspecified; I10 Essential (primary) hypertension; M1A.20X0 Drug-induced chronic gout, unspecified site, without tophus (tophi); M54.30 Sciatica, unspecified side
CPT/HCPCS: 36415; 80053; 80305; 80307; 85027; 86780; 87811